=== PATIENT | male | born 1970 | race Caucasian/White ===

== ENCOUNTER 2020-08-10 05:22 | Inpatient (IN) | payer BC, OTHER ==
[2020-08-06 10:53] LABS: BASOPHILS % 0.5 % (0.0-1.0); EOSINOPHILS # (AUTO) 0.1 (0.0-0.4); EOSINOPHILS % 1.5 % (0.0-6.0); HEMATOCRIT 45.4 % (38.2-49.6); HEMOGLOBIN 14.9 g/dL (14.0-18.0); LYMPHOCYTES # (AUTO) 2.2 (1.0-3.2); LYMPHOCYTES % 24.7 % (18.0-39.1); MEAN CORPUSCULAR HGB CONC 32.8 g/dL (31-35); MEAN CORPUSCULAR VOLUME 91.3 fL (81-99); MONOCYTES # (AUTO) 0.8 (0.2-0.8); MONOCYTES % 8.8 % (4.4-11.3); NEUTROPHILS # (AUTO) 5.7 (2.1-6.9); NEUTROPHILS % 64.2 % (38.7-80.0); PLATELET COUNT 221 x10e3/uL (140-360); RED BLOOD COUNT 4.97 x10e6/uL (4.3-5.7); RED CELL DISTRIBUTION WIDTH 13.2 % (11.7-14.4)
[2020-08-06 11:10] LABS: BLOOD UREA NITROGEN 16 mg/dL (7-26); BUN/CREATININE RATIO 13 (6-25); CALCIUM 9.2 mg/dL (8.4-10.2); CARBON DIOXIDE 27 mmol/L (22-29); CHLORIDE 106 mmol/L (98-107); CREATININE, SERUM 1.22 mg/dL (0.72-1.25); EST GLOMERULAR FILTRATION RATE > 60 ML/MIN (60-); GLUCOSE 99 mg/dL (74-118); SODIUM 141 mmol/L (136-145)
[2020-08-10] VITALS (8 sets, daily range): BP systolic 132–154; BP diastolic 72–96
[~2020-08-10] VITALS: Ht 172.7 cm; Wt 131.5 kg
[~2020-08-10 05:22] MED LIST: DICLOFENAC POTA50 MG PO; HYDRALAZINE HCL10 MG PO; HYDROCHLOROTHIA25 MG PO; LOSARTAN POTAS100 MG PO; VERAPAMIL ER120 MG PO; WELLBUTRIN SR150 MG PO
[2020-08-10] MEDS ORDERED: CEFAZOLIN SOD 1 GM/NS 50ML 100 ML IV ONE (06:16)
[2020-08-10] MEDS ORDERED: BUPIVACAINE 0.25% 30ML SDV INJ ONE (07:01)
[2020-08-10] MEDS ORDERED: LIDOCAINE HCL (LTA) 4 ML SOLN ONE (07:11)
[2020-08-10] MEDS ORDERED: SCOPOLAMINE 1.5 MG PATCH ONE (07:11)
[2020-08-10] MEDS ORDERED: ACETAMINOPHEN 1000 MG/100 ML 100 ML IV ONE (07:12)
[2020-08-10] MEDS ORDERED: SUGAMMADEX SODIUM 200 MG/2 ML VIAL IV ONE (08:24)
[2020-08-10] MEDS ORDERED: METOCLOPRAMIDE HCL 10 MG/2ML VIAL ONE (09:06)
[2020-08-10] MEDS ORDERED: FENTANYL CITRATE/PF 100MCG/2 ML INJ ONE ×2 (09:17→13:13)
--- NOTE | 2020-08-10 09:18 | Operative Report ---
DATE OF PROCEDURE: 08/10/2020 SURGEON: Emanuel Herrera MD PREOPERATIVE DIAGNOSES: 1. Morbid obesity, BMI 45. 2. Hypertension. 3. Obstructive sleep apnea. POSTOPERATIVE DIAGNOSES: 1. Morbid obesity, BMI 45. 2. Hypertension. 3. Obstructive sleep apnea. PREOPERATIVE INDICATION: Treat disease, prevent complications related to comorbid conditions of obesity. PROCEDURE: Laparoscopic vertical sleeve gastrectomy. ANESTHESIA: General. PRODUCTION QUALITY MANAGER: Samy Novoa, visual merchandising assistant (needed due to complexity of case). FLUIDS: 1 L crystalloid. ESTIMATED BLOOD LOSS: 10 mL. DRAINS: None. COMPLICATIONS: None. SPECIMENS: Partial stomach. GRAFTS: None. FINDINGS: 1. Normal upper GI anatomy. 2. 3 cm cystic mass of the left lobe of the liver. 3. Negative intraoperative leak test. PROCEDURE IN DETAIL: The patient was brought to the operating room, was intubated under general endotracheal anesthesia. He was positioned supine with both arms abducted and all pressure points appropriately padded. He was sterilely prepped and draped in the usual fashion. A preprocedure pause was performed identifying the patient, use of perioperative antibiotics, intended procedure, and staff surgeon. Access was gained via a 5 mm left subcostal incision using a Veress needle. The abdomen is insufflated, four additional trocars were placed in the standard position. Liver retractor was used to expose the stomach. We noted a multi-cystic mass in the left lobe of the liver, which appeared to be hemangioma. However, no biopsy was obtained. Pictures were obtained and the findings were discussed with the family members. Next, I mobilized the greater curvature of stomach from about 4 cm proximal to the pyloric valve to the left jonn of the diaphragm using the [place] LigaSure device. I then had anesthesia inserted a 32-Turkmen sizing bougie along the lesser curvature of the stomach. The greater curvature of stomach was resected with multiple firings of a 60 mm purple load Atmospheirtronic stapling device, which was reinforced with TRS. Once the specimen was resected, it was removed through the right periumbilical port site. The port site was closed with 0 Vicryl suture using a Dave Faby technique. We then did a leak test, no leaks were identified. Hemostasis was verified. The liver retractor was removed. The trocars were removed. The abdomen is desufflated. Incision sites were closed with 4-0 Monocryl suture in a subcuticular fashion. Dermabond dressings were applied, 0.25% bupivacaine was used both at the preperitoneal incision site. The patient tolerated the procedure well. Type of wound was type 2, clean, contaminated. All surgical sponge and instrument counts were correct. Emanuel Herrera MD Bibi/MANE /[id number]
--- OUTSIDE RECORDS SUMMARY | 2020-08-10 09:19 | XMS REPORT | Continuity of Care Document ---
Author Author [facility] Organization [facility] Address [address] [place] [address] Phone Unavailable Care Team Providers Care Public Relations Supervisor Name Role Phone MEGHANA MILLAN PCP Unavailable ANEESH BHATIA M.D., Dior MELENDREZ Attphys Unavailable ANEESH BHATIA M.D., Dior MELENDREZ Admphys Unavailable Problems This patient has no known problems. Allergies, Adverse Reactions, Alerts This patient has no known allergies or adverse reactions. Medications This patient has no known medications. Procedures This patient has no known procedures. Encounters Start Date/Time End Date/Time [facility]counter Type [facility] ID Source 2017-03-06 04:47:00 2017-03-06 04:47:00 Outpatient C MCSET X MED [id number] [facility] Results Test Description Test Time Test Comments Results Result Comments Source XR SHOULDER 2+V, COMPLETE-RIGHT 2017-03-06 10:55:43 Information: Status post right rotator cuff repairRight shoulder 2 viewsPostoperative changes of the soft tissues is noted. There is minimalosteophytic spurring and sclerosis of the articulating surfaces. Thereis anatomic alignment and position.IMPRESSION:1. Postoperative changes2. Mild degenerative changes. 30121& LAT 2017-02-28 10:40:00 XR CHEST 2V, PA & LATHISTORY: Preop respiratory assessment regarding rotator cuff repairCOMPARISON: None availableTECHNIQUE: PA and lateral views providedFINDINGS: Heart size and pulmonary vasculature within normal limits. Nofocal opacity or acute pleural abnormality. Mild scoliotic curvature ofthe spine noted.IMPRESSION: No active cardiopulmonary process. CT ABDOMEN/PELVIS WITH 2017-02-22 14:14:00 [id number] [place], [place] [address]SEDVKMKUMY IMAGING REPORTPatient Name: FANTA MONTESIGDate of Service: [id number]: 46 Sex: M Order #: [id number] [facility] 1970 [facility] Number: [id number] Record Number: [id number] Hospital Number: [id number] Physician: Vinay BLANKing Physician: MÓNICA MORALES ABDOMEN AND PELVIS WITH CONTRAST:CLINICAL HISTORY: Abdominal pain with nausea vomiting for 2 days; no priorstudies hereTECHNIQUE: Examination is performed following intravenous administration of100 mL of Isovue-300. 4 mm axial sections were obtained with coronal andsagittal reconstructions. The GFR is [address] exam was performed using one or more of the following dosereduction techniques: Automated exposure control, adjustment of the MA andor KV according to patient size or use of iterative reconstructiontechnique.FINDINGS: Images to the lung bases demonstrate a spiculated mass measuring1.9 x 1.5 cm at the base of the left lung. There is a smaller smoothlymarginated subcentimeter nodule demonstrated just anterior to the mass.Further evaluation with a CT scan the chest would be advisable to evaluatefor additional abnormalities in the chest.The enhanced liver, spleen, pancreas, adrenals, kidneys ureters and bladderoral normal.The appendix is normal containing air.The unopacified bowel loops are unremarkable.There is no evidence of ascites or masses.The aorta and its branches as well as the bony lumbar spine are normal forage.Impression:1. Spiculated mass seen in the left lower lung as described above. Advisefurther evaluation with a CT scan the chest to evaluate for additionalabnormalities.2. The CT scan of the abdomen and pelvis is unremarkableElectronically Signed By: Bin Lopez M.D., 02/22/2017 2:12 PMLegally authenticated by NETTIE Cox 2017-02-22 14:12:01
--- NOTE | 2020-08-10 10:00 | NUR ---
Received patient from PACU patient is awake alert and oriented X3 has 5 trochar sites to abdomen with Dermabond. IV access to right wrist. c/o nausea patient has scopolamine patch behind right ear. Oriented to room and use of call light. Belongings and call light within reach. Verbalized understanding to call when needing assistance.
[2020-08-10 10:36] LABS: BASOPHILS % 0.2 % (0.0-1.0); EOSINOPHILS % 0.2 % (0.0-6.0); HEMATOCRIT 44.4 % (38.2-49.6); HEMOGLOBIN 15.2 g/dL (14.0-18.0); LYMPHOCYTES # (AUTO) 1.3 (1.0-3.2); LYMPHOCYTES % 6.6 % (18.0-39.1); MEAN CORPUSCULAR HEMOGLOBIN 31.1 pg (28-32); MEAN CORPUSCULAR HGB CONC 34.2 g/dL (31-35); MEAN CORPUSCULAR VOLUME 90.8 fL (81-99); MONOCYTES # (AUTO) 0.2 (0.2-0.8); MONOCYTES % 1.3 % (4.4-11.3); NEUTROPHILS # (AUTO) 17.4 (2.1-6.9); NEUTROPHILS % 91.3 % (38.7-80.0); PLATELET COUNT 214 x10e3/uL (140-360); RED BLOOD COUNT 4.89 x10e6/uL (4.3-5.7)
[2020-08-10] MEDS: ONDANSETRON HCL INJ 2MG/ML 2ML 2 MG/ML VIAL IV PRN ×2 (10:57→20:57)
[2020-08-10] MEDS: SODIUM CHLORIDE 0.9% 1000ML 1,000 ML IV SCH ×2 (11:25→20:58)
[2020-08-10] MEDS: SCOPOLAMINE 1.5 MG PATCH TOP SCH (11:30)
--- NOTE | 2020-08-10 11:51 | History and Physical ---
CHIEF COMPLAINT: "I'd weight loss surgery." HISTORY OF PRESENT ILLNESS: This is a 50-year-old white man, who was admitted to [facility] with diagnosis of extreme obesity, BMI 45 that was complicating his underlying hypertension and sleep apnea. Today, the patient underwent successful laparoscopic vertical sleeve gastrectomy that was performed by Dr. Emanuel Herrera. The patient tolerated the surgery quite well. During the surgery, the patient was found to have a negative intraoperative leak test. The patient states he is belching, but denies any flatus. The patient states he is quite nauseous, but denies any vomiting. Today's white blood cell count after surgery was 19,000 with 91% segmenters, hemoglobin 15.2 g/dL. The patient's BUN and creatinine on August 06, 2020, was 16 and 1.22, respectively. REVIEW OF SYSTEMS: GENERAL: Weight has been stable. No fever or chills. No malaise. HEENT: No headaches. No visual changes. CARDIOVASCULAR/RESPIRATORY: No chest pain. No shortness of breath or cough. He has sleep apnea, but he uses CPAP machine every night. GI: Complains of nausea, no vomiting. He does have some abdominal discomfort. Denies any flatus. : No Pisano catheter in place. NEUROMUSCULAR: Denies any limb weakness or numbness. PAST MEDICAL HISTORY: 1. Extreme obesity, BMI 44. 2. Hypertensive heart disease. 3. Obstructive sleep apnea. 4. Stage 2 chronic kidney disease. 5. Depression. ALLERGIES: NO KNOWN DRUG ALLERGIES. HOME MEDICATIONS: 1. Bupropion extended release 150 mg once daily. 2. Hydralazine 10 mg b.i.d. p.r.n. elevated blood pressure. 3. Hydrochlorothiazide 25 mg daily. 4. Losartan 100 mg daily. 5. Verapamil 240 mg daily. 6. Diclofenac 50 mg b.i.d. FAMILY HISTORY: Multiple members have hypertension and type 2 diabetes mellitus. SURGICAL HISTORY: 1. Laparoscopic vertical sleeve gastrectomy. 2. Left knee reconstructive surgery. 3. Right shoulder surgery. SOCIAL HISTORY: He is , lives with his . He is employed as a ticket worker. He denies any tobacco use. The patient states he drinks alcohol socially. PHYSICAL EXAMINATION: GENERAL: He is awake, alert. He has a flat affect. He is very pleasant and cooperative. He does not appear to be any obvious distress. VITAL SIGNS: Height 5 feet 8 inches, weight 290 pounds, BMI 44. Blood pressure 142/96, pulse 66, respiratory rate is 16, temperature 97.5, and oxygen 97% on room air. INTEGUMENT: Skin is warm and dry. No pallor, jaundice, or diaphoresis. HEENT: Anicteric sclerae. Moist mucous membranes. NECK: Supple. CARDIOVASCULAR: Distant heart sounds. Regular rate and rhythm. LUNGS: No rales, no rhonchi, no wheezing. ABDOMEN: Obese. No bowel sounds are auscultated. The patient's laparoscopic incisions are clean, dry, intact, currently dressed. EXTREMITIES: No edema or deformity. He is currently wearing sequential compression devices in the lower legs. NEUROLOGIC: Intact. No gross deficits appreciated. DIAGNOSES: 1. Extreme obesity, BMI 44, complicating underlying hypertension and sleep apnea. 2. Status post laparoscopic vertical sleeve gastrectomy today. 3. Hypertensive heart disease. 4. Obstructive sleep apnea. 5. Stage 2 chronic kidney. PLAN: 1. We will renew home meds, but we will hold hydrochlorothiazide and losartan today until he is slightly more hydrated since he has stage 2 chronic kidney disease. 2. Follow renal function and electrolytes. 3. Monitor blood pressure. 4. Pain control. 5. Antiemetics. 6. Encourage incentive spirometer usage to prevent atelectasis. 7. We will start enoxaparin subcutaneous twice a day to prevent deep venous thrombosis. 8. Mobilize patient. 9. Restart bupropion. I would like to thank, Dr. Herrera for involving me in the care of this patient. I spent 45 minutes in the care of the patient. MD MATILDA White/MANE /[id number] FRANCOISE
[2020-08-10] MEDS ORDERED: LIDOCAINE HCL 2% JELLY 5 ML TUBE ONE (12:48)
[2020-08-10] MEDS ORDERED: PROPOFOL IV EMULSION 10 MG/ML 20 ML VIAL ONE (12:48)
[2020-08-10] MEDS ORDERED: LIDOCAINE HCL 2% LOCAL INJ 5 ML SDV VIAL INJ ONE (12:48)
[2020-08-10] MEDS ORDERED: EPHEDRINE SULFATE INJ 50 MG/ML VIAL ONE (12:48)
[2020-08-10] MEDS ORDERED: ROCURONIUM BROMIDE 10 MG/ML 5ML VIAL IV ONE (12:48)
[2020-08-10] MEDS ORDERED: DEXAMETHASONE SOD PHOS INJ 4 MG/ML VIAL ONE (12:48)
[2020-08-10] MEDS ORDERED: ONDANSETRON HCL INJ 2MG/ML 2ML 2 MG/ML VIAL ONE (12:48)
[2020-08-10] MEDS ORDERED: SEVOFLURANE INHAL SOLN 250 ML PEN BTL ONE (12:48)
[2020-08-10] MEDS ORDERED: MIDAZOLAM HCL 2 MG/2 ML VIAL ONE (13:13)
--- NOTE | 2020-08-10 19:05 | NUR ---
WALKING ROUNDS PERFORMED, RECEIVED PT LAYING SEMI FOWLERS IN BED, AAOX3, RR EVEN AND NON-LABORED, ON ROOM AIR. NO S/SX OF DISTRESS NOTED. X5 TROCAR SITES TO ANTERIOR ABD TO BE CDI, OPEN TO AIR. LEFT PT LAYING SEMI FOWLERS IN BED, BED IN LOW LOCKED POSITION, SIDE RAILS UPX2, CALL LIGHT AND PHONE WITHIN REACH.
[2020-08-10] MEDS: ENOXAPARIN SOD INJ 40 MG/0.4 ML SYR SC SCH (20:50)
[2020-08-10] MEDS: MORPHINE SULFATE 2 MG/ML SYR 1ML IV PRN (20:57)
[2020-08-11] VITALS (8 sets, daily range): BP systolic 77–150; BP diastolic 51–69
[2020-08-11] MEDS ORDERED: FAMOTIDINE 20 MG TAB PO ONE (01:00)
[2020-08-11] MEDS: ONDANSETRON HCL INJ 2MG/ML 2ML 2 MG/ML VIAL IV PRN ×3 (01:00→20:30)
[2020-08-11] MEDS ORDERED: PROMETHAZINE 12.5MG/ NACL 0.9% 12.5 MG/50 ML BAG IV PRN (01:00)
[2020-08-11] MEDS: MORPHINE SULFATE 2 MG/ML SYR 1ML IV PRN ×2 (04:46→07:48)
[2020-08-11] MEDS: SODIUM CHLORIDE 0.9% 1000ML 1,000 ML IV SCH ×4 (05:10→22:00)
[2020-08-11 06:12] LABS: BASOPHILS % 0.1 % (0.0-1.0); HEMATOCRIT 41.1 % (38.2-49.6); LYMPHOCYTES # (AUTO) 1.6 (1.0-3.2); LYMPHOCYTES % 8.2 % (18.0-39.1); MEAN CORPUSCULAR HEMOGLOBIN 31.5 pg (28-32); MEAN CORPUSCULAR HGB CONC 34.1 g/dL (31-35); MEAN CORPUSCULAR VOLUME 92.4 fL (81-99); MONOCYTES # (AUTO) 1.3 (0.2-0.8); MONOCYTES % 6.6 % (4.4-11.3); NEUTROPHILS # (AUTO) 16.8 (2.1-6.9); NEUTROPHILS % 84.6 % (38.7-80.0); PLATELET COUNT 256 x10e3/uL (140-360); RED BLOOD COUNT 4.45 x10e6/uL (4.3-5.7)
[2020-08-11 06:39] LABS: ALANINE AMINOTRANSFERASE 24 IU/L (0-55); ALBUMIN 3.6 g/dL (3.5-5.0); ALBUMIN/GLOBULIN RATIO 1.2 (0.8-2.0); ALKALINE PHOSPHATASE 58 IU/L (40-150); ANION GAP 16.9 mmol/L (8-16); BLOOD UREA NITROGEN 13 mg/dL (7-26); BUN/CREATININE RATIO 13 (6-25); CALCIUM 8.3 mg/dL (8.4-10.2); CARBON DIOXIDE 19 mmol/L (22-29); CHLORIDE 105 mmol/L (98-107); CREATININE, SERUM 1.02 mg/dL (0.72-1.25); EST GLOMERULAR FILTRATION RATE > 60 ML/MIN (60-); GLUCOSE 122 mg/dL (74-118); MAGNESIUM 2.1 MG/DL (1.3-2.1); PHOSPHORUS 2.9 MG/DL (2.3-4.7); POTASSIUM 3.9 mmol/L (3.5-5.1); SODIUM 137 mmol/L (136-145)
[2020-08-11] MEDS ORDERED: HYDROCODONE/APAP 7.5MG-325MG 1 EA TAB PO PRN ×2 (07:30→08:15)
[2020-08-11] MEDS: FAMOTIDINE 20 MG TAB PO SCH ×2 (07:48→15:52)
--- NOTE | 2020-08-11 08:21 | NUR ---
Progress Note S: No major complaints, nausea O: AF, VSS General- no acute distress Abdomen- soft, incisions c/d/i A/P: POD 1, s/p Lap sleeve gastrectomy (BMI 45, DM, HTN) -Clears, ambulate, IS, OOB to chair -WBC elevated- Dr. Whitfield working up from septic standpoint and obtaining EKG as well -Ok to discharge home per Dr. Whitfield recommendations- patient will say another night until his WBC trends down and infectious problems ruled out
--- NOTE | 2020-08-11 08:45 | Progress Note ---
DATE: 08/11/2020 CHIEF COMPLAINT/HISTORY OF PRESENT ILLNESS: This is a 50-year-old white man, who was initially admitted to [facility] with diagnosis of extreme obesity, BMI 44, that was complicating his underlying hypertension and sleep apnea. The patient underwent laparoscopic vertical sleeve gastrectomy yesterday, Monday, August 10, 2020. The patient complains of slight cough as well as pain in his periumbilical area. The patient does note belching, but denies any flatus. He also denies any bowel movements. The patient also complains of intense nausea. Yesterday, the patient vomited twice. The nurses state that the patient did not use a CPAP machine last night. The patient was started on famotidine 20 mg by mouth twice a day early this morning. White blood cell count today is 19,900, with 84% segmented neutrophils. Hemoglobin is 14 g/dL. The patient's BUN and creatinine today are 13 and 1.02 respectively. The patient's serum bicarbonate is 19. REVIEW OF SYSTEMS: As per HPI. PHYSICAL EXAMINATION: GENERAL: He is awake. He is alert. He is fully oriented. The patient does have a flat affect. VITAL SIGNS: Height 5 feet and 8 inches, weight 280 pounds. BMI is 44. Blood pressure is 148/64, pulse 64, respiratory rate 18, oxygen 98% on room air, temperature 98.1. INTEGUMENT: Skin is warm and dry. No pallor, jaundice, or diaphoresis. HEENT: Anterior sclerae. Moist mucous membranes. NECK: Supple. CARDIOVASCULAR: Distant heart sounds. Regular rate and rhythm. LUNGS: No rales. No rhonchi. No wheezes. ABDOMEN: Obese. He does have bowel sounds. The laparoscopic incisions are currently dressed. No surrounding erythema. He does have tenderness when palpating the periumbilical area, but no rebound or guarding. Difficult to assess for masses or organomegaly because of the patient's body habitus. EXTREMITIES: No edema or deformity. NEUROLOGIC: Intact. DIAGNOSES: 1. Status post laparoscopic vertical sleeve gastrectomy on August 10, 2020. 2. Extreme obesity, BMI 44, complicated underlying sleep apnea, hypertension. 3. Hypertensive heart disease. 4. Obstructive sleep apnea. 5. Leukocytosis. 6. Anion gap metabolic acidosis. PLAN: 1. Continue intravenous fluids. 2. Intravenous antiemetics as needed. 3. We will start intravenous proton pump inhibitor. 4. We will stop oral famotidine. 5. Encourage mobilization with ambulation. 6. Encourage incentive spirometer usage to prevent atelectasis. 7. We will order a chest x-ray today. 8. Restart losartan for blood pressure control. 9. We will follow renal function and electrolytes. 10. We will hold discharge. 11. Continue enoxaparin subcutaneous twice a day to prevent deep venous thrombosis and pulmonary embolism. I spent 40 minutes in the care of this patient. MD MATILDA White/MANE /[id number] MTDD
--- NOTE | 2020-08-11 08:56 | Diagnostic Imaging Report ---
EXAMINATION: CHEST SINGLE (PORTABLE) INDICATION: Cough, hypotension COMPARISON: None FINDINGS: LINES/TUBES:None LUNGS:The lung volumes are low. Mild left basilar opacities. No pulmonary edema. PLEURA:No pleural effusion or pneumothorax. MEDIASTINUM:The cardiomediastinal silhouette appears normal in size and shape. BONES/SOFT TISSUES:No acute osseous injury. ABDOMEN:No free air under the diaphragm. IMPRESSION: Low lung volumes. Mild left basilar opacities, most likely subsegmental atelectasis. Signed by: Germain See MD on 08/11/2020 8:53 AM
[2020-08-11] MEDS ORDERED: HYDROCHLOROTHIAZIDE 25 MG TAB PO SCH (09:00)
[2020-08-11] MEDS: VERAPAMIL HCL 240 MG TABSR PO SCH (09:00)
[2020-08-11] MEDS ORDERED: LOSARTAN POTASSIUM 100 MG TAB PO SCH (09:00)
[2020-08-11] MEDS ORDERED: VERAPAMIL HCL 120 MG TABSR PO SCH (09:00)
[2020-08-11] MEDS: LOSARTAN POTASSIUM 100 MG TAB PO SCH (09:00)
[2020-08-11] MEDS: PANTOPRAZOLE 40 MG 10ML VIAL IV SCH (09:53)
[2020-08-11] MEDS: ENOXAPARIN SOD INJ 40 MG/0.4 ML SYR SC SCH ×2 (09:53→20:30)
[2020-08-11] MEDS: BUPROPION HCL SR 150 MG TAB PO SCH (09:53)
[2020-08-11] MEDS ORDERED: SODIUM CHLORIDE 0.9% 500ML 500 ML IV ONE (12:15)
[2020-08-11] MEDS ORDERED: VANCOMYCIN 1GM/NS 250 ML 250 ML IV ONE (13:30)
[2020-08-11] MEDS ORDERED: CEFEPIME 1GM/NS 0.9% 50 ML 50 ML IV ONE (13:30)
[2020-08-11] MEDS: HYDROCODONE/APAP 5MG-325MG TAB PO PRN ×2 (15:52→20:30)
--- NOTE | 2020-08-11 16:47 | NUR ---
Nutrition Screen Note RD Recommendation for Physician: - As feasible per MD discretion, advance diet to full liquids Plan of Care: RD following, monitoring for tolerance and adequacy Nutrition reason for involvement: MD Consult- post gastrectomy diet education Primary Diagnose(s): morbid obesity, laparoscopic vertical sleeve gastrectomy PMH: HTN, sleep apnea, CKD stage II, depression Ht: 68 in Wt: 290 lb BMI: 44.1 kg/m2 IBW: [address] Assessment: (08/11) 50 YOM admitted for bariatric surgery, seen today per MD consult for diet education. Pt sleeping at time of visits, awakened at last attempt. Pt receptive to diet education, unable to provide full review of diet education materials as pt kept falling asleep. Pt reports seeing a RD regarding diet [employer] REF[employer] and that he is familiar with the recommendations. Pt provided with diet education materials that included progression of diet, protein supplements, MVI/mineral rec's, and foods/beverages to avoid. Pt with no questions or concerns at time of visit. Chart reviewed. Labs and meds reviewed. Current Diet: bariatric clear liquids Malnutrition Evaluation (08/11/20) The patient does not meet criteria for a specified degree of malnutrition at this time. Will re-evaluate at follow-up as appropriate. Diet Education Needs Assessment: Diet education indicated, pt receptive- diet education provided 08/11. Learner(s): pt Barriers: pt very sleepy at time of visit, unable to provide complete education Cultural/Language Modifications: none Readiness: somewhat ready Method: handouts, discussion Topics: post gastrectomy diet progression Understanding/Compliance: fair due to current status, pt reports prior education with RD Diet tolerance: tolerating CLD Nutrition Care Level: low Signed: Sandrita Alberts RD, LD, [facility]
[2020-08-11] MEDS ORDERED: SODIUM CHLORIDE 0.9% 1000ML 2,000 ML IV ONE (19:45)
[2020-08-12] VITALS (8 sets, daily range): BP systolic 128–146; BP diastolic 69–85
[2020-08-12] MEDS ORDERED: CEFEPIME HCL 1 GM VIAL IV SCH (01:30)
[2020-08-12] MEDS: HYDROCODONE/APAP 5MG-325MG TAB PO PRN ×3 (01:43→20:20)
[2020-08-12] MEDS: ONDANSETRON HCL INJ 2MG/ML 2ML 2 MG/ML VIAL IV PRN ×2 (01:57→08:00)
[2020-08-12] MEDS: CEFEPIME 1GM/NS 0.9% 50 ML 50 ML IV SCH ×3 (02:17→14:17)
[2020-08-12 05:14] LABS: BASOPHILS % 0.1 % (0.0-1.0); HEMOGLOBIN 10.2 g/dL (14.0-18.0); LYMPHOCYTES # (AUTO) 3.1 (1.0-3.2); LYMPHOCYTES % 14.5 % (18.0-39.1); MEAN CORPUSCULAR HGB CONC 35.2 g/dL (31-35); MEAN CORPUSCULAR VOLUME 93.9 fL (81-99); MONOCYTES # (AUTO) 1.8 (0.2-0.8); MONOCYTES % 8.3 % (4.4-11.3); NEUTROPHILS # (AUTO) 16.2 (2.1-6.9); NEUTROPHILS % 76.5 % (38.7-80.0); PLATELET COUNT 190 x10e3/uL (140-360); RED BLOOD COUNT 3.09 x10e6/uL (4.3-5.7); RED CELL DISTRIBUTION WIDTH 13.9 % (11.7-14.4)
[2020-08-12 05:38] LABS: ALBUMIN 3.3 g/dL (3.5-5.0); ALBUMIN/GLOBULIN RATIO 1.2 (0.8-2.0); ANION GAP 14.9 mmol/L (8-16); CALCIUM 7.9 mg/dL (8.4-10.2); CREATININE, SERUM 1.63 mg/dL (0.72-1.25); POTASSIUM 3.9 mmol/L (3.5-5.1)
[2020-08-12] MEDS ORDERED: DIATRIZOATE MEGL/DIATRIZOA SOD 30 ML BTL PO ONE (07:51)
[2020-08-12] MEDS: PANTOPRAZOLE 40 MG 10ML VIAL IV SCH (08:07)
[2020-08-12] MEDS: BUPROPION HCL SR 150 MG TAB PO SCH (08:10)
[2020-08-12] MEDS: FAMOTIDINE 20 MG TAB PO SCH ×2 (08:10→16:20)
[2020-08-12] MEDS: ENOXAPARIN SOD INJ 40 MG/0.4 ML SYR SC SCH ×2 (08:11→20:20)
[2020-08-12] MEDS: VERAPAMIL HCL 240 MG TABSR PO SCH (08:14)
[2020-08-12] MEDS: LOSARTAN POTASSIUM 100 MG TAB PO SCH (08:16)
[2020-08-12] MEDS ORDERED: IOPAMIDOL 370 MG/ML 200 ML INFUS..BTL INJ ONE (08:27)
[2020-08-12] MEDS ORDERED: SODIUM CHLORIDE 0.9% 50ML 50 ML ONE (08:27)
--- NOTE | 2020-08-12 08:27 | Progress Note ---
DATE: 08/12/2020 CHIEF COMPLAINT/HISTORY OF PRESENT ILLNESS: This is a 50-year-old white man, who was initially admitted to [facility] with diagnosis of extreme obesity, BMI 44 that was complicating his underlying hypertension and sleep apnea. During this hospitalization, the patient underwent successful laparoscopic vertical sleeve gastrectomy. Yesterday his discharge was held because the patient was hypotensive and he had abnormal labs, specifically elevated white blood cell count. The patient's white blood cell count today is 21,100 with 76% segmenters. The patient's hemoglobin today is 10 g/dL. The patient's BUN and creatinine are 28 and 1.63 respectively. The patient's potassium is 3.8. Serum bicarbonate is 18. The patient's BUN and creatinine 28 and 1.63 respectively. The patient's anion gap is 14.9. The last lactic acid level checked yesterday was 1.8. The patient had a troponin I checked twice yesterday. The first one was 0.047, and the second one was 0.164. Chest film performed yesterday revealed mild left basilar opacity. The patient states that he does have a slight productive cough. Denies any fever or chills. The patient states today he has less nausea. He also denies any vomiting. The patient states he has belching and flatus, but no bowel movement. REVIEW OF SYSTEMS: As per HPI. PHYSICAL EXAMINATION: GENERAL: He is awake, alert. He is fully oriented. He has no distress. He appears more comfortable today than compared to yesterday. VITAL SIGNS: Blood pressure 136/72, pulse 106, respiratory rate 22, temp 98.2, oxygen 98% on room air. Height 5 feet 8 inches, weight is 290 pounds, BMI 44. INTEGUMENT: Skin is warm and dry. No pallor, jaundice, or diaphoresis. HEENT: Clear, moist mucous membranes. NECK: Supple. CARDIOVASCULAR: Distant heart sounds. Tachycardic. Regular rate and rhythm. LUNGS: No rales. No rhonchi. No wheezes. ABDOMEN: Soft. No bowel sounds auscultated. The trocar incisional sites are clean, dry, intact with no drainage. The patient has slight tenderness right inferior to the right upper quadrant area. EXTREMITIES: No edema in the legs. NEUROLOGIC: Intact. DIAGNOSES: 1. Status post laparoscopic vertical sleeve gastrectomy. 2. Extreme obesity, BMI 44, complicated underlying hypertension and sleep apnea. 3. Acute renal insufficiency, likely secondary to acute tubular necrosis. 4. Anion gap metabolic acidosis. 5. Left lower lobe pneumonia, likely. PLAN: 1. Continue intravenous fluids. 2. Order a CT of the abdomen and pelvis with oral contrast. 3. Order CT angiogram of the chest to assess for pulmonary thromboembolism. 4. Monitor renal function. 5. Monitor hemoglobin and hematocrit. 6. I spoke with the patient's bariatric surgeon concerning the patient's abnormal labs. 7. Continue intravenous antibiotics for possible left lower lobe pneumonia. I spent 45 minutes in the care of this patient. MD MATILDA White/MANE /[id number] MTDD
[2020-08-12] MEDS: SODIUM CHLORIDE 0.9% 1000ML 1,000 ML IV SCH ×4 (09:31→16:53)
--- NOTE | 2020-08-12 11:23 | Diagnostic Imaging Report ---
EXAM: CT Chest WITH contrast- Pulmonary Embolism Protocol INDICATION: ^assess for pulmonary embolism ^[id number] ^1020 ^Y COMPARISON: None TECHNIQUE: Chest was scanned utilizing a multidetector helical scanner from the lung apex through the level of the diaphragm after administration of IV contrast. Thin section reconstructions were obtained with special concentration on the pulmonary arteries. Coronal and sagittal reformations were obtained. Pulmonary embolism protocol was performed. IV CONTRAST: 100 cc of Isovue 370 RADIATION DOSE: Total DLP: 1410 mGy*cm Dose modulation, iterative reconstruction, and/or weight based adjustment of the mA/kV was utilized to reduce the radiation dose to as low as reasonably achievable. COMPLICATIONS: None FINDINGS: LINES/ TUBES: None. PULMONARY ARTERIES: Severely limited evaluation. The main pulmonary artery measures Hounsfield units of 188. Normally for diagnostic evaluation Hounsfield units should be above 300. Negative for large central pulmonary embolism. Evaluation of the segmental ranches and beyond is limited due to poor contrast opacification and respiratory motion artifact. Main pulmonary artery is of normal caliber. LUNGS AND AIRWAYS: Basilar atelectasis is noted. Probable nodular atelectasis is noted at the left lung base measuring up to 1.4 cm. PLEURA: The pleural spaces are clear. HEART AND MEDIASTINUM: The thyroid gland is normal. No mediastinal, hilar or axillary lymphadenopathy. The heart is normal in size. Negative for right ventricular enlargement or bowing of the interventricular septum.. There is no pericardial effusion. UPPER ABDOMEN: Better evaluated on separately reported CT of the abdomen and pelvis. BONES: Negative for acute osseous abnormality. Mild to moderate multilevel degenerative changes of the thoracic spine are noted. SOFT TISSUES: Unremarkable. IMPRESSION: 1. Limited evaluation for pulmonary embolus amount described above. Negative for large central or saddle embolus or secondary signs of right heart strain. 2. Linear atelectasis at the right lung base and probable nodular atelectasis versus pulmonary hamartoma/granuloma at the left lung base. Consider follow-up noncontrast CT chest in 6 months to assess for resolution and assess for possible calcium/fat within the left basilar nodular opacity. Signed by: Denzel Ye MD on 08/12/2020 11:20 AM
--- NOTE | 2020-08-12 11:36 | Diagnostic Imaging Report ---
ADDENDUM #1 ADDENDUM: At approximately 1150 colon hours on 08/12/2020 the imaging was reviewed with the performing surgeon, Dr. Martinez, in person. Given that the hyperdense fluid appears to originate from the inferior/anterior aspect of the staple line and there is no pneumoperitoneum findings are more suggestive of staple line bleed as opposed to surgical leak. In addition the exophytic hypodense lesion is noted intraoperatively to be arising from the liver, likely a hemangioma as it becomes isodense to the liver on delayed phase imaging. Signed by: Denzel Ye MD on 08/12/2020 1:[address] of the abdomen and pelvis with contrast TECHNIQUE: CT of the abdomen and pelvis WITH intravenous contrast and WITH oral contrast. Dose modulation, iterative reconstruction, and/or weight-based adjustment of the mA/kV was utilized to reduce the radiation dose to as low as reasonably achievable. IV CONTRAST: 100 mL of Isovue-370 ORAL CONTRAST: Gastrografin RADIATION DOSE: Total DLP: 910 mGy*cm COMPLICATIONS: None INDICATION: ^recent lap sleeve gastrectomy with high WBC. oral contrast ^[id number] ^1040 ^Y. COMPARISON: None. FINDINGS: LOWER THORAX: See separately reported CT of the chest. HEPATOBILIARY: No focal hepatic lesions. Gallbladder is unremarkable. No biliary ductal dilatation. SPLEEN: No splenomegaly. Wedged shaped superior hypodensity probably relates to a small infarct. PANCREAS: No focal masses or ductal dilatation. ADRENALS: No adrenal nodules. KIDNEYS/URETERS: No hydronephrosis, stones, or masses. Delayed imaging damages symmetric excretion of contrast into nondilated ureters. PELVIC ORGANS/BLADDER: Unremarkable. PERITONEUM/RETROPERITONEUM: Heterogeneous free fluid is noted throughout the abdomen and pelvis, extending from the upper abdomen including the perihepatic space into the right paracolic gutter and pelvis. Dependently within the pelvis there appears to be contrast within the fluid (image 87). Fluid does not measure simple and measures Alberto images ranging from 30-50 throughout. LYMPH NODES: No lymphadenopathy. VESSELS: Unremarkable. GI TRACT: Postsurgical changes from sleeve gastrectomy are noted. There is a hypodense exophytic lesion arising from the gastric fundus (image 17) measuring up to 3.6 x 3.0 cm. Of uncertain etiology, possibly postsurgical in nature. Oral contrast is identified throughout the proximal colon and distal small bowel loops. Negative for bowel obstruction.. BONES AND SOFT TISSUES: No acute osseous abnormality. Mild to moderate multilevel degenerative changes of the spine are noted. No suspicious lytic or blastic lesion. Soft tissues are unremarkable.. IMPRESSION: 1. Hyperdense free fluid throughout the abdomen and pelvis extending from the upper midline abdomen into the perihepatic space to the right pericolic gutter and dependent portions of the pelvis. No surrounding contrast enhancement to suggest abscess formation. There is probable contrast poorly dependently at the base of the pelvis suggesting leak from recent sleeve gastrectomy. Hyperdense appearance is also concerning for a component of hemoperitoneum. 2. Post surgical changes from laparoscopic sleeve gastrectomy. Hypodense exophytic lesion arising from the gastric fundus and superior portion of the suture line is of uncertain etiology and could relate to postoperative change versus incisional hernia. The above findings were discussed with Dr. Whitfield on 08/12/2020 11:20 AM, who responded indicating that the communication was understood. The performing surgeon, Dr. Martinez, will be notified. Signed by: Denzel Ye MD on 08/12/2020 11:33 AM
[2020-08-12] MEDS ORDERED: SUGAMMADEX SODIUM 200 MG/2 ML VIAL IV ONE (12:01)
[2020-08-12] MEDS ORDERED: LIDOCAINE HCL (LTA) 4 ML SOLN ONE (12:01)
--- NOTE | 2020-08-12 12:11 | NUR ---
Progress Note S: Patient became progressively septic, hypotensive, WBC up to 21,000; He's been tolerating clears though, and he says he feels better overall. Imaging: CT scan showed a possibility of a leak at the distal end of staple line. O: AF, VSS General- no acute distress Abdomen-soft, tender right upper quadrant; incisions healing well A/P: POD 2, s/p Lap sleeve gastrectomy Will take back to the Operating room for a laparoscopic exploration Discussed this with patient He consents for treatment
[2020-08-12] MEDS ORDERED: INDIGOTINDISULFONATE SODIUM 8 MG/ML AMP IJ ONE (12:24)
[2020-08-12] MEDS ORDERED: BUPIVACAINE 0.25% 30ML SDV INJ ONE (12:25)
[2020-08-12] MEDS ORDERED: SCOPOLAMINE 1.5 MG PATCH ONE (12:34)
[2020-08-12] MEDS ORDERED: SUCCINYLCHOLINE CHLORIDE 20 MG/ML 10ML VIAL ONE (13:10)
[2020-08-12] MEDS ORDERED: ONDANSETRON HCL INJ 2MG/ML 2ML 2 MG/ML VIAL ONE (13:10)
[2020-08-12] MEDS ORDERED: NEOSTIGMINE 1 MG/ML 10ML VIAL ONE (13:10)
[2020-08-12] MEDS ORDERED: PROPOFOL IV EMULSION 10 MG/ML 20 ML VIAL ONE (13:10)
[2020-08-12] MEDS ORDERED: SEVOFLURANE INHAL SOLN 250 ML PEN BTL ONE (13:10)
[2020-08-12] MEDS ORDERED: LIDOCAINE HCL 2% LOCAL INJ 5 ML SDV VIAL INJ ONE (13:10)
[2020-08-12] MEDS ORDERED: ROCURONIUM BROMIDE 10 MG/ML 5ML VIAL IV ONE (13:10)
[2020-08-12] MEDS ORDERED: GLYCOPYRROLATE INJ 0.2 MG/ML VIAL ONE (13:10)
[2020-08-12] MEDS ORDERED: PHENYLEPHRINE HCL 1% 10 MG/ML VIAL ONE (13:10)
[2020-08-12] MEDS ORDERED: FENTANYL CITRATE/PF 100MCG/2 ML INJ ONE (13:21)
[2020-08-12] MEDS ORDERED: MIDAZOLAM HCL 2 MG/2 ML VIAL ONE (13:21)
--- NOTE | 2020-08-12 14:24 | Operative Report ---
DATE OF PROCEDURE: 08/12/2020 SURGEON: Emanuel Herrera MD PREOPERATIVE DIAGNOSES: Sepsis, peritonitis, anemia. POSTOPERATIVE DIAGNOSES: Intraperitoneal hematoma. PREOPERATIVE INDICATION: Treat disease, prevent septic and/or hemorrhage related complications. PROCEDURES: Diagnostic laparoscopy with evacuation of 300 mL of a hematoma. ANESTHESIA: General. SURGICAL CODER: Samy Novoa, surgical product sales consultant (needed due to complexity of case). FLUIDS: 1400 mL of crystalloid. ESTIMATED BLOOD LOSS: 300 mL. DRAINS: A 19-Latvian round CASH. COMPLICATIONS: None. SPECIMENS: None. GRAFTS: None. FINDINGS: 1. Large intraperitoneal hematoma. 2. Negative leak test. PROCEDURE IN DETAIL: The patient was brought to the operating room, and was intubated under general endotracheal anesthesia. He was sterilely prepped and draped in the usual fashion. A preprocedure pause was performed identifying the patient, use of perioperative antibiotics, intended procedure, and staff surgeon. We gained access via the 5 mm subcostal incision, which we had used 2 days prior and placed our trocars in their positions, that we had previously placed on the 10 of August. Once again, access to the peritoneal cavity and immediately noted a large hematoma in the peritoneal cavity, extending from the distal surface of the sleeve staple line to the right pericolic gutter. I spent a great deal of time evacuating the hematoma with this suction coloring machine operator. We found no active source of bleeding. We looked at the splenic hilum, the surfaces of the liver, the right pericolic gutter, and the sleeve staple line. I did place some hemoclips on this staple line on areas where I could tell that there may be some vessels. We then injected indigo blue dye through OG tube, mixed with saline 30 mL worth. However, no leak was identified throughout the staple line. We then placed a 19-Latvian round CASH along the staple line and brought this out through the right flank port site and sutured to the skin with nylon suture. After verifying hemostasis, we then closed the large port site with 0 Vicryl suture using the Dave-Mao technique and then desufflated the abdomen. The trocars were removed. Liver retractor was removed. Incision sites were closed with 4-0 Monocryl suture in a subcuticular fashion. Dermabond dressings were applied. A 0.25% bupivacaine was used both at the preperitoneal incision sites. The patient tolerated the procedure well. Type of wound was type 1, clean. All surgical sponge and instrument counts were correct. MD SWAPNIL Malone/MANE /[id number]
[2020-08-12] MEDS ORDERED: MEPERIDINE HCL INJ 25 MG/ML VIAL ONE (14:28)
--- NOTE | 2020-08-12 20:20 | NUR ---
PATIENT IS RESTING IN BED IN STABLE CONDITION, NO SIGNS OF RESPIRATORY DISTRESS NOTED. IV FLUIDS ARE RUNNING AT ORDERED RATE AND PATIENT VOICES PAIN AT A LEVEL OF 7, WAS MEDICATED ORDERED. CASH DRAIN IS PATENT AND FLOWING SEROSANGUINEOUS FLUID NOTED. BED IS IN LOW POSITION, BOTH SIDE RAILS ARE UP, CALL LIGHT IS WITHIN EASY REACH, WILL CONTINUE TO MONITOR.
[2020-08-12] MEDS ORDERED: ACETAMINOPHEN 325 MG TAB PO PRN (21:00)
[2020-08-13] VITALS (10 sets, daily range): BP systolic 105–147; BP diastolic 63–93
[2020-08-13] MEDS: HYDROCODONE/APAP 5MG-325MG TAB PO PRN ×6 (00:30→21:25)
[2020-08-13] MEDS: SODIUM CHLORIDE 0.9% 1000ML 1,000 ML IV SCH ×6 (01:15→19:00)
[2020-08-13] MEDS: PANTOPRAZOLE 40 MG 10ML VIAL IV SCH ×2 (01:20→06:35)
[2020-08-13] MEDS: CEFEPIME 1GM/NS 0.9% 50 ML 50 ML IV SCH ×2 (01:36→14:14)
[2020-08-13 05:11] LABS: BASOPHILS % 0.3 % (0.0-1.0); EOSINOPHILS % 0.1 % (0.0-6.0); HEMATOCRIT 22.5 % (38.2-49.6); HEMOGLOBIN 7.9 g/dL (14.0-18.0); LYMPHOCYTES # (AUTO) 2.2 (1.0-3.2); LYMPHOCYTES % 19.4 % (18.0-39.1); MEAN CORPUSCULAR HEMOGLOBIN 33.2 pg (28-32); MEAN CORPUSCULAR HGB CONC 35.1 g/dL (31-35); MEAN CORPUSCULAR VOLUME 94.5 fL (81-99); MONOCYTES # (AUTO) 1.1 (0.2-0.8); MONOCYTES % 9.3 % (4.4-11.3); NEUTROPHILS # (AUTO) 7.9 (2.1-6.9); NEUTROPHILS % 70.5 % (38.7-80.0); PLATELET COUNT 164 x10e3/uL (140-360); RED BLOOD COUNT 2.38 x10e6/uL (4.3-5.7); RED CELL DISTRIBUTION WIDTH 13.6 % (11.7-14.4)
[2020-08-13 05:37] LABS: ALANINE AMINOTRANSFERASE 38 IU/L (0-55); ALBUMIN 2.8 g/dL (3.5-5.0); ALBUMIN/GLOBULIN RATIO 1.1 (0.8-2.0); ALKALINE PHOSPHATASE 42 IU/L (40-150); ANION GAP 10.8 mmol/L (8-16); BLOOD UREA NITROGEN 14 mg/dL (7-26); BUN/CREATININE RATIO 15 (6-25); CALCIUM 7.7 mg/dL (8.4-10.2); CARBON DIOXIDE 23 mmol/L (22-29); CHLORIDE 111 mmol/L (98-107); CREATININE, SERUM 0.95 mg/dL (0.72-1.25); EST GLOMERULAR FILTRATION RATE > 60 ML/MIN (60-); GLUCOSE 94 mg/dL (74-118); POTASSIUM 3.8 mmol/L (3.5-5.1); SODIUM 141 mmol/L (136-145)
[2020-08-13] MEDS ORDERED: SODIUM CHLORIDE 0.9% 250ML 250 ML IV SCH (08:00)
[2020-08-13] MEDS: BUPROPION HCL SR 150 MG TAB PO SCH (08:05)
[2020-08-13] MEDS: LOSARTAN POTASSIUM 100 MG TAB PO SCH (08:05)
[2020-08-13] MEDS: VERAPAMIL HCL 240 MG TABSR PO SCH (08:06)
--- NOTE | 2020-08-13 08:09 | NUR ---
PROGRESS NOTE S: No complaints O: AF, VSS; Hgb 7.9 today, WBC 11,000, creatinine 0.9 Gen- no distress Abd- soft, incisions c/d/i A/P: POD 3, s/p Lap sleeve gastrectomy, complicated by acute blood loss anemia (likely secondary to hemorrhage at staple line), s/p diagnostic laparoscopy with evacuation of hematoma (POD 1) -Cont Clears -Transfuse 1 unit PRBC -OK to d/c drain -Possible d/c home tomorrow -Appreciate care provided by Dr. Whitfield
--- NOTE | 2020-08-13 08:40 | Progress Note ---
DATE: 08/13/2020 CHIEF COMPLAINT/HISTORY OF PRESENT ILLNESS: This is a 50-year-old white man, who during this admission underwent laparoscopic sleeve gastrectomy. The patient experienced persistent hypotension as well as acute renal insufficiency as well as signs and symptoms consistent with sepsis, specifically tachycardia, hypotension, elevated lactic acid level and leukocytosis. The patient's hemoglobin yesterday dropped to 10.2 g/dL. The patient underwent a CT of the abdomen and pelvis yesterday on August 12, 2020, with oral contrast, which revealed evidence of hemoperitoneum. The bariatric surgeon, namely Dr. Emanuel Herrera, took the patient to the operating room yesterday and found a large intraperitoneal hematoma. The patient underwent diagnostic laparoscopy with evacuation of 300 mL of the hematoma. The patient tolerated the surgery quite well. During the procedure, he received 1400 mL of crystalloid. Today's hemoglobin 7.9 g/dL, the patient's white blood cell count is 11,200 with 70% segmented neutrophils. The patient's BUN and creatinine today are 14 and 0.95, respectively. Potassium is 3.8. AST and ALT are 31 and 38, respectively. The patient voiced no complaints. The patient denies any nausea or vomiting. The patient denies any abdominal pain. The patient states he has been ambulating up and down the halls with no difficulty this morning. The patient notes belching and flatus, but denies any bowel movement. The patient states his cough has actually improved. REVIEW OF SYSTEMS: As per HPI. PHYSICAL EXAMINATION: GENERAL: He is awake, alert, fully oriented, in no distress, very pleasant and cooperative on exam. VITAL SIGNS: Height is 5 feet 8 inches, weight is 290 pounds. BMI 44. Blood pressure is 134/74, pulse 84, respiratory rate 18, temperature is 98.2, and oxygen 97% on room air. INTEGUMENT: Skin is warm and dry. Slight pallor. No jaundice or diaphoresis. HEENT: Anicteric sclerae with moist mucous membranes. NECK: Supple. CARDIOVASCULAR: Distant heart sounds. Tachycardic rate with regular rhythm. LUNGS: No rales. No rhonchi. No wheezes. ABDOMEN: Soft. Bowel sounds are auscultated. No tenderness. The laparoscopic incision sites are clean, dry, and intact. EXTREMITIES: No edema or deformity. NEUROLOGIC: Intact. DIAGNOSES: 1. Status post laparoscopic vertical sleeve gastrectomy on August 10, 2020. 2. Status post diagnostic laparoscopy with hematoma evacuation (300 mL) on August 12, 2020. 3. Acute renal insufficiency, resolved. 4. Anion gap metabolic acidosis, resolved. 5. Hypertensive heart disease. 6. Extreme obesity, BMI 44. 7. Acute hemorrhagic anemia secondary to hemoperitoneum. PLAN: 1. Transfuse 1 unit of packed red cells. 2. Follow hemoglobin and hematocrit. 3. Follow electrolytes and renal function. 4. We will stop intravenous fluids while the patient is receiving blood transfusion. 5. Continue clear liquid diet. 6. Encourage the patient to ambulate. 7. Continue incentive spirometry to prevent atelectasis. 8. I discussed case today with the bariatric surgeon. 9. Discharge planning tentatively for tomorrow, Monday, August 14, 2020. I spent 35 minutes in the care of the patient. MD MATILDA White/MANE /[id number] MTDD
[2020-08-13] MEDS: SCOPOLAMINE 1.5 MG PATCH TOP SCH (12:47)
--- NOTE | 2020-08-13 15:45 | NUR ---
CASH drain removed as ordered and dry dressing applied. Patient tolerated well. No drainage from the site after 30 minutes. Awaiting blood to be ready for transfusion. Consented, in no apparent distress. Medicated for pain and nausea
--- NOTE | 2020-08-13 17:35 | NUR ---
Blood started with Devorah mercedes bedside. Patient states he thought he was O-. Double checked with the lab before hanging.
--- NOTE | 2020-08-13 19:40 | NUR ---
PATIENT HAS FINISHED A UNIT OF BLOOD, NO SIGNS OF DISTRESS NOTED. VITALS ARE STABLE WILL CONTINUE TO MONITOR.
[2020-08-14] VITALS: BP 115/70
[2020-08-14] MEDS: CEFEPIME 1GM/NS 0.9% 50 ML 50 ML IV SCH (00:30)
[2020-08-14] MEDS: SODIUM CHLORIDE 0.9% 1000ML 1,000 ML IV SCH ×2 (00:30→00:37)
[2020-08-14 04:00] VITALS: BP 137/82
[2020-08-14 05:22] LABS: BASOPHILS % 0.3 % (0.0-1.0); EOSINOPHILS # (AUTO) 0.3 (0.0-0.4); EOSINOPHILS % 2.9 % (0.0-6.0); HEMOGLOBIN 8.6 g/dL (14.0-18.0); LYMPHOCYTES # (AUTO) 2.8 (1.0-3.2); LYMPHOCYTES % 29.1 % (18.0-39.1); MEAN CORPUSCULAR HEMOGLOBIN 31.4 pg (28-32); MEAN CORPUSCULAR HGB CONC 33.1 g/dL (31-35); MEAN CORPUSCULAR VOLUME 94.9 fL (81-99); MONOCYTES # (AUTO) 0.7 (0.2-0.8); MONOCYTES % 7.5 % (4.4-11.3); NEUTROPHILS # (AUTO) 5.7 (2.1-6.9); NEUTROPHILS % 59.8 % (38.7-80.0); PLATELET COUNT 178 x10e3/uL (140-360); RED BLOOD COUNT 2.74 x10e6/uL (4.3-5.7); RED CELL DISTRIBUTION WIDTH 13.6 % (11.7-14.4)
[2020-08-14 05:41] LABS: ALANINE AMINOTRANSFERASE 36 IU/L (0-55); ALBUMIN 2.9 g/dL (3.5-5.0); ALBUMIN/GLOBULIN RATIO 1.1 (0.8-2.0); ALKALINE PHOSPHATASE 46 IU/L (40-150); ANION GAP 12.7 mmol/L (8-16); BLOOD UREA NITROGEN 13 mg/dL (7-26); BUN/CREATININE RATIO 15 (6-25); CALCIUM 7.8 mg/dL (8.4-10.2); CARBON DIOXIDE 23 mmol/L (22-29); CHLORIDE 109 mmol/L (98-107); CREATININE, SERUM 0.89 mg/dL (0.72-1.25); EST GLOMERULAR FILTRATION RATE > 60 ML/MIN (60-); GLUCOSE 82 mg/dL (74-118); POTASSIUM 3.7 mmol/L (3.5-5.1); SODIUM 141 mmol/L (136-145)
[2020-08-14] MEDS: HYDROCODONE/APAP 5MG-325MG TAB PO PRN (05:41)
[2020-08-14] MEDS: PANTOPRAZOLE 40 MG 10ML VIAL IV SCH (06:21)
--- NOTE | 2020-08-14 07:00 | NUR ---
BEDSIDE SHIFT REPORT RECEIVED PT IN STABLE CONDITION, 5 TROCHAR SITES TO ABDOMEN C/D/I, IVF INFUSING TO R AC 20G NO SS OF INFILTRATION NOTED, UPDATED ON POC VOICED UNDERSTANDING, NO OTHER CO VOICED CALL LIGHT IN REACH WILL CONTINUE TO MONITOR
[2020-08-14 07:43] VITALS: BP 127/74
[2020-08-14 07:56] VITALS: BP 127/74
[2020-08-14] MEDS: VERAPAMIL HCL 240 MG TABSR PO SCH (08:20)
[2020-08-14] MEDS: LOSARTAN POTASSIUM 100 MG TAB PO SCH (08:21)
[2020-08-14] MEDS: BUPROPION HCL SR 150 MG TAB PO SCH (08:21)
[2020-08-14] MEDS ORDERED: ONDANSETRON HCL 4 MG ORAL DISINTEGRATING TAB PO PRN (08:45)
--- NOTE | 2020-08-14 09:21 | Discharge Summary ---
ADMIT DIAGNOSES: 1. Extreme obesity, BMI 44, complicating underlying hypertension and sleep apnea. 2. Hypertensive heart disease. 3. Obstructive sleep apnea. DISCHARGE DIAGNOSES: 1. Status post laparoscopic vertical sleeve gastrectomy on August 10, 2020. 2. Status post diagnostic laparoscopy with hematoma evacuation (300 mL) on August 12, 2020. 3. Extreme obesity, BMI 44, complicating underlying hypertension and sleep apnea. 4. Hypertensive heart disease. 5. Obstructive sleep apnea. 6. Acute renal insufficiency, secondary to acute tubular necrosis, resolved. 7. Acute hemorrhagic anemia from staple line bleed, likely; resolved.. 8. Status post packed red cell transfusion (1 unit). 9. Sepsis, secondary to hemoperitoneum, resolved. HOSPITAL COURSE: This is a 50-year-old white man, who was initially admitted to [facility] with diagnosis of extreme obesity, BMI of 44 that was complicating his underlying hypertensive heart disease and sleep apnea. On admission, the patient underwent laparoscopic vertical sleeve gastrectomy that was performed by Dr. Emanuel Herrera. The patient tolerated surgery quite well. Unfortunately, afterwards the patient developed leukocytosis and acute renal insufficiency. Moreover, he was hypotensive and tachycardic. Also, his lactic acid level was elevated and it did get as high as 2.2. The patient underwent a CT of the chest with intravenous contrast, which did not reveal any obvious pulmonary embolism. However, the patient underwent a CT of the abdomen and pelvis with contrast, which revealed an evidence of hemoperitoneum. It was felt that this hemoperitoneum was secondary to staple line bleed as opposed to surgical leak. Of note, the patient did receive enoxaparin postoperatively and twice a day during this hospitalization to prevent deep venous thrombosis. When the patient was admitted, his hemoglobin was 15.2 g/dL. His hemoglobin did get as low as 7.9 g/dL. The patient was transfused 1 unit of packed red blood cells during this hospital stay. The patient's hemoglobin on discharge was 8.6 g/dL. During this hospitalization, the patient's white blood [place] [address] with 76% segmented neutrophils. On discharge, the patient's white blood cell count was 9500 with 59% segmented neutrophils. During this hospital stay, the patient did receive intravenous cefepime for his sepsis as well as multiple normal saline intravenous boluses as well as continuous infusion of normal saline. The patient's vital signs normalized during this hospitalization as well as his renal function as previous stated. On the day of discharge, the patient was tolerating a clear liquid diet. The patient had no complaints on discharge. Also, during this hospitalization, the patient was taken back to the operating room by Dr. Emanuel Herrera and diagnostic laparoscopy was performed. During this procedure, hematoma evacuation was performed and 300 mL of blood was extracted. The patient tolerated the surgery well. CONDITION ON DISCHARGE: Stable. As previously stated, he is tolerating a clinical liquid diet. He had no complaints on discharge. DISCHARGE MEDICATIONS: 1. Tylenol #3, 300/30, one pill every 4 hours p.r.n., pain #30 prescribed. No refills. 2. Zofran 4 mg 1 tablet every 6 hours p.r.n. nausea and vomiting, #20 prescribed. No refills. 3. Bupropion ER 150 mg daily. 4. Hydrochlorothiazide 25 mg daily. 5. Losartan 100 mg daily. 6. Verapamil 240 mg daily. The patient was told to stop the diclofenac until further notice. FOLLOWUP INSTRUCTIONS: The patient started follow up with Dr. Emanuel Hrerera in 1 week and with his primary care physician in 2 weeks. MD MATILDA White/MANE /[id number] cc: Emanuel Herrera MD MTDD
[2020-08-15] MEDS ORDERED: PANTOPRAZOLE SOD 40 MG TABEC PO SCH (07:30)
== END 2020-08-14 11:05 | disposition home or self-care (01) | DRG 619 ==
LOC: OR 05:22 → PACU V 08:41 → MED/SURG 09:59
PROVIDERS: ADMIT Internal Medicine; ATTEND Internal Medicine
PROC: 0DB64Z3 Excision of Stomach, Percutaneous Endoscopic Approach, Vertical (ICD-10-PCS; principal; 2020-08-10 07:30)
PROC: 0WCG4ZZ Extirpation of Matter from Peritoneal Cavity, Percutaneous Endoscopic Approach (ICD-10-PCS; 2020-08-12)
PROC: 30233N1 Transfusion of Nonautologous Red Blood Cells into Peripheral Vein, Percutaneous Approach (ICD-10-PCS; 2020-08-13)
DX: E66.01 Morbid (severe) obesity due to excess calories (principal); N17.0 Acute kidney failure with tubular necrosis; J18.9 Pneumonia, unspecified organism; E87.2 Acidosis; D62 Acute posthemorrhagic anemia; L76.32 Postprocedural hematoma of skin and subcutaneous tissue following other procedure; T81.44XA Sepsis following a procedure, initial encounter; R16.0 Hepatomegaly, not elsewhere classified; I13.10 Hypertensive heart and chronic kidney disease without heart failure, with stage 1 through stage 4 chronic kidney disease, or unspecified chronic kidney disease; Z68.41 Body mass index [BMI] 40.0-44.9, adult; F32.9 Major depressive disorder, single episode, unspecified; N18.2 Chronic kidney disease, stage 2 (mild); G47.33 Obstructive sleep apnea (adult) (pediatric); Z82.49 Family history of ischemic heart disease and other diseases of the circulatory system; Z83.3 Family history of diabetes mellitus; Z11.59 Encounter for screening for other viral diseases
CPT/HCPCS: 36415; 71045; 71260; 74177; 80048; 80053; 83605; 83735; 84100; 84484; 85025; 86850; 86900; 86920; 87040; 93005; J0330; J0690; J0692; J1100; J1650; J2001; J2175; J2250; J2270; J2370; J2405; J2550; J2710; J2765; J3010; J3370; J7030; J7040; P9016; Q9967

== ENCOUNTER 2020-08-17 15:04 | Emergency (ER) | payer BC, OTHER ==
[~2020-08-17] VITALS: Ht 172.7 cm; Wt 126.1 kg
[2020-08-17 16:04] LABS: BASOPHILS % 0.2 % (0.0-1.0); EOSINOPHILS # (AUTO) 0.2 (0.0-0.4); EOSINOPHILS % 1.4 % (0.0-6.0); HEMATOCRIT 30.8 % (38.2-49.6); HEMOGLOBIN 10.1 g/dL (14.0-18.0); LYMPHOCYTES # (AUTO) 2.3 (1.0-3.2); LYMPHOCYTES % 19.4 % (18.0-39.1); MEAN CORPUSCULAR HEMOGLOBIN 30.5 pg (28-32); MEAN CORPUSCULAR HGB CONC 32.8 g/dL (31-35); MEAN CORPUSCULAR VOLUME 93.1 fL (81-99); MONOCYTES % 8.4 % (4.4-11.3); NEUTROPHILS # (AUTO) 8.2 (2.1-6.9); NEUTROPHILS % 70.2 % (38.7-80.0); PLATELET COUNT 343 x10e3/uL (140-360); RED BLOOD COUNT 3.31 x10e6/uL (4.3-5.7)
[2020-08-17 16:22] LABS: ALANINE AMINOTRANSFERASE 92 IU/L (0-55); ALBUMIN 3.6 g/dL (3.5-5.0); ALBUMIN/GLOBULIN RATIO 1.1 (0.8-2.0); ALKALINE PHOSPHATASE 75 IU/L (40-150); ANION GAP 13.7 mmol/L (8-16); BLOOD UREA NITROGEN 16 mg/dL (7-26); BUN/CREATININE RATIO 14 (6-25); CALCIUM 9.2 mg/dL (8.4-10.2); CARBON DIOXIDE 26 mmol/L (22-29); CHLORIDE 102 mmol/L (98-107); CREATINE KINASE 91 IU/L (30-200); CREATININE, SERUM 1.13 mg/dL (0.72-1.25); EST GLOMERULAR FILTRATION RATE > 60 ML/MIN (60-); GLUCOSE 90 mg/dL (74-118); POTASSIUM 3.7 mmol/L (3.5-5.1); SODIUM 138 mmol/L (136-145)
--- OUTSIDE RECORDS SUMMARY | 2020-08-17 17:19 | XMS REPORT | Continuity of Care Document ---
Author Author [facility] t Organization [facility] Address [address] [place] [address] Phone Unavailable Care Team Providers Care Network Security Consultant Name Role Phone NONSTAFF PCP Unavailable Clara WHITFIELD Attphys Unavailable ANEESH BHATIA M.D., Dior MELENDREZ Attphys Unavailable ORClara COOK Admphys Unavailable ANEESH BHATIA M.D., Dior MELENDREZ Admphys Unavailable Payers Payer Name Policy Type Policy Number Effective Date [facility] Date [id number] 2019 00:00:00 [facility] Cdc Review Covid19 [id number] [facility] Problems Condition Name Condition Details Condition Category Status Onset Date Resolution Date Last Treatment Date Treating Clinician Comments Source Problem Condition Active [facility] Allergies, Adverse Reactions, Alerts This patient has no known allergies or adverse reactions. Family History Family Member Diagnosis Comments Start Date Stop Date Source 33 FATHER Family history of diabetes mellitus [facility] 33 FATHER Family history of coronary artery disease [facility] 33 FATHER Family history of hypertension [facility] 32 MOTHER Family history of hypertension [facility] Social History Social Habit Start Date Stop Date Quantity Comments Source Sex Assigned At 1970 00:00:00 1970 00:00:00 Male [facility] Medications Ordered Medication Name Filled Medication Name Start Date Stop Da te Current Medication? Ordering Clinician Indication Dosage Frequency Signature (SIG) Comments Components Source Bupropion Hcl (Wellbutrin Sr) 150 Mg TABLET.ER Bupropi on Hcl (Wellbutrin Sr) 150 Mg TABLET.ER Yes 150 Daily [facility] Hydralazine Hcl Hydralazine Hcl Yes 10 Twice A Day as needed for Elevated Blood Pressure [facility] Hydrochlorothiazide Hydrochlorothiazide Yes 25 Daily [facility] Losartan Potassium Losartan Potassium Yes 100 Da paddy [facility] Verapamil Hcl (Verapamil Er) 120 Mg CAP24H.PEL Verapam il Hcl (Verapamil Er) 120 Mg CAP24H.PEL Yes 240 Daily [facility] Diclofenac Potassium Diclofenac Potassium 2020-08-14 00:00:00 No Twice A Day [facility] Vital Signs Vital Name Observation Time Observation Value Comments Source Body Temperature 2020-08-14 07:56:00 98.1 [degF] [facility] BMI (Body Mass Index) 2020-08-10 11:24:00 44.1 kg/m2 [facility] Weight 2020-08-10 10:53:00 290 [lb_av] [facility] Procedures Procedure Date / Time Performed Performing Clinician [facility] e Computed tomography of chest with contrast 2020-08-12 00:00:00 [facility] Computed tomography of abdomen and pelvis with contrast 00:00:00 [facility] Plan of Care Planned Activity Planned Date Details Comments Source Instructions Obesity and Weight Control C [facility] Encounters Start Date/Time End Date/Time Encounter Type Admission Type [facility] Care Department Encounter ID Source 2020-08-10 08:41:00 2020-08-14 11:05:00 Discharged Inpatient 3 JOLENE WHITFIELD [facility] [id number] [facility] 2017-03-06 04:47:00 2017-03-06 04:47:00 [facility] [id number] [facility] Results Test Description Test Time Test Comments Results Result Comments Source Blood leukocytes automated count (number/volume) 2020-08-14 05:10:00 Test Item White Blood Count (test code = 6690-2) 9.51 4.8-10.8 [facility] erythrocytes automated count (number/volume)2020-08-14 05:10:00* Test Item Value Reference Range Interpretation Comments Red Blood Count (test code = 789-8) 2.74 4.3-5.7 [facility] hemoglobin measurement (moles/volume)2020-08-14 05:10:00* Test Item Value Reference Range Interpretation Comments Hemoglobin (test code = 96668-5) 8.6 14.0-18.0 [facility] blood hematocrit (volume fraction)2020-08-14 05:10:00* Test Item Value Reference Range Interpretation Comments Hematocrit (test code = 4544-3) 26.0 38.2-49.6 [facility] erythrocyte mean corpuscular gbjeuk6326-19-23 05:10:00* Test Item Value Reference Range Interpretation Comments Mean Corpuscular Volume (test code = 787-2) 94.9 81-99 [facility] erythrocyte mean corpuscular hemoglobin (mass per erythrocyte)2020-08-14 05:10:00* Test Item Value Reference Range Interpretation Comments Mean Corpuscular Hemoglobin (test code = 785-6) 31.4 28-32 [facility]landsAut[facility] erythrocyte mean corpuscular hemoglobin concentration measurement (mass/volume)2020-08-14 05:10:00* Test Item Value Reference Range Interpretation Comments Mean Corpuscular Hemoglobin Concent (test code = 786-4) 33.1 31-35 [facility]landsRDW PssYs-Lva7308-72-09 05:10:00* Test Item Value Reference Range Interpretation Comments Red Cell Distribution Width (test code = 37051-2) 13.6 11.7 -14.4 [facility] blood platelet count (count/volume)2020-08-14 05:10:00* Test Item Value Reference Range Interpretation Comments Platelet Count (test code = 777-3) 178 140-360 [facility] segmented neutrophil count as percentage of total coxhfiuzeq4342-08-11 05:10:00* Test Item Value Reference Range Interpretation Comments Neutrophils (%) (Auto) (test code = 02334-2) 59.8 38.7-80.0 [facility]lands[facility] blood lymphocyte count as percentage ot total dmyvszomso2764-60-48 05:10:00* Test Item Value Reference Range Interpretation Comments Lymphocytes (%) (Auto) (test code = 736-9) 29.1 18.0-39.1 [facility]landsAutom[facility] blood monocyte count as percentage of total vechxrjlzg1344-01-88 05:10:00* Test Item Value Reference Range Interpretation Comments Monocytes (%) (Auto) (test code = 5905-5) 7.5 4.4-11.3 [facility]lands[facility] blood eosinophil count as percentage of total demehxfwka0639-66-78 05:10:00* Test Item Value Reference Range Interpretation Comments Eosinophils (%) (Auto) (test code = 713-8) 2.9 0.0-6.0 [facility]landsAutom[facility] blood basophil count as percentage of total ookbhbrgyg1769-06-32 05:10:00* Test Item Value Reference Range Interpretation Comments Basophils (%) (Auto) (test code = 706-2) 0.3 0.0-1.0 [facility]landsFluoroscopic procedure less than one hour vdrcqksr5711-27-29 05:10:00* Test Item Value Reference Range Interpretation Comments IM GRANULOCYTES % (test code = IM GRANULOCYTES %) 0.4 0.0- 1.0 [facility]lands[facility] blood neutrophil count 2020-08-14 05:10:00* Test Item Value Reference Range Interpretation Comments Neutrophils # (Auto) (test code = 751-8) 5.7 2.1-6.9 [facility]landsBlood lymphocytes count (number/volume) 2020-08-14 05:10:00* Test Item Value Reference Range Interpretation Comments Lymphocytes # (Auto) (test code = 34387-8) 2.8 1.0-3.2 [facility]landsBlood monocytes automated count (number/volume)2020-08-14 05:10:00* Test Item Value Reference Range Interpretation Comments Monocytes # (Auto) (test code = 742-7) 0.7 0.2-0.8 [facility]landsAutom[facility] blood eosinophil count 2020-08-14 05:10:00* Test Item Value Reference Range Interpretation Comments Eosinophils # (Auto) (test code = 711-2) 0.3 0.0-0.4 [facility]landsAutomated blood basophil count (count/volume)2020-08-14 05:10:00* Test Item Value Reference Range Interpretation Comments Basophils # (Auto) (test code = 704-7) 0.0 0.0-0.1 [facility]landsFluoroscopic procedure less than one hour kbqirzxv2612-34-50 05:10:00* Test Item Value Reference Range Interpretation Comments Absolute Immature Granulocyte (auto (torsten t code = Absolute Immature Granulocyte (auto) 0.04 0-0.1 [facility] sodium measurement (moles/volume)2020-08-14 05:10:00* Test Item Value Reference Range Interpretation Comments Sodium Level (test code = 2951-2) 141 136-145 [facility] or plasma potassium measurement (moles/volume)2020-08-14 05:10:00* Test Item Value Reference Range Interpretation Comments Potassium Level (test code = 2823-3) 3.7 3.5-5.1 [facility] or plasma chloride measurement (moles/volume)2020-08-14 05:10:00* Test Item Value Reference Range Interpretation Comments Chloride Level (test code = 2075-0) 109 98-107 [facility] or plasma carbon dioxide, total measurement (moles/volume)2020-08-14 05:10:00* Test Item Value Reference Range Interpretation Comments Carbon Dioxide Level (test code = 2028-9) 23 22-29 [facility] or plasma anion meg4745-71-18 05:10:00* Test Item Value Reference Range Interpretation Comments Anion Gap (test code = 64424-5) 12.7 8-16 [facility] or plasma urea nitrogen measurement (mass/volume)2020-08-14 05:10:00* Test Item Value Reference Range Interpretation Comments Blood Urea Nitrogen (test code = 3094-0) 13 7-26 [facility] or plasma creatinine measurement (mass/volume)2020-08-14 05:10:00* Test Item Value Reference Range Interpretation Comments Creatinine (test code = 2160-0) 0.89 0.72-1.25 [facility] or plasma urea nitrogen/creatinine mass zqqpd9704-90-67 05:10:00* Test Item Value Reference Range Interpretation Comments BUN/Creatinine Ratio (test code = 3097-3) 15 6-25 [facility]landsEstimated glomerular filtration rate (GFR) ioypbavydmqui5578-32-05 05:10:00* Test Item Value Reference Range Interpretation Comments Estimat Glomerular Filtration Rate (test code = 581653822) > 60 >60 Ranges were taken from the National Kidney Disease Education Program and the [facility] literature.Reference ranges:60 or greater: Tabxsc71-02 ( for 3 consecutive months): Chronic kidney disease 15 or less: Kidney failureTexas Children's Hospital The WoodlandsGlucose kwrfvwadgam7149-92-61 05:10:00* Test Item Value Reference Range Interpretation Comments Glucose Level (test code = GNI7607) 82 74-118 [facility] or plasma calcium measurement (mass/volume)2020-08-14 05:10:00* Test Item Value Reference Range Interpretation Comments Calcium Level (test code = 27680-1) 7.8 8.4-10.2 [facility] or plasma total bilirubin measurement (mass/volume)2020-08-14 05:10:00* Test Item Value Reference Range Interpretation Comments Total Bilirubin (test code = 1975-2) 0.6 0.2-1.2 [facility]landsFluoroscopic procedure less than one hour rgzrncqt1228-42-03 05:10:00* Test Item Value Reference Range Interpretation Comments Aspartate Amino Transf (AST/SGOT) (test code = Aspartate Amino Transf (AST/SGOT)) 25 5-34 [facility] or plasma alanine aminotransferase measurement (enzymatic activity/volume)2020-08-14 05:10:00* Test Item Value Reference Range Interpretation Comments Alanine Aminotransferase (ALT/SGPT) (test code = 1742-6) 36 0-55 [facility] or plasma protein measurement (mass/volume)2020-08-14 05:10:00* Test Item Value Reference Range Interpretation Comments Total Protein (test code = 2885-2) 5.6 6.5-8.1 [facility] or plasma albumin measurement (mass/volume)2020-08-14 05:10:00* Test Item Value Reference Range Interpretation Comments Albumin (test code = 1751-7) 2.9 3.5-5.0 [facility]landsPlasma globulin measurement (mass/volume) 2020-08-14 05:10:00* Test Item Value Reference Range Interpretation Comments Globulin (test code = 14288-9) 2.7 2.3-3.5 [facility] or plasma albumin/globulin mass tkvta8470-15-97 05:10:00* Test Item Value Reference Range Interpretation Comments Albumin/Globulin Ratio (test code = 1759-0) 1.1 0.8-2.0 [facility] or plasma alkaline phosphatase measurement (enzymatic activity/volume)2020-08-14 05:10:00* Test Item Value Reference Range Interpretation Comments Alkaline Phosphatase (test code = 6768-6) 46 40-150 [facility]landsFluoroscopic procedure less than one hour mhokqjoj7135-40-29 11:45:00* Test Item Value Reference Range Interpretation Comments Lactic Acid Level (test code = Lactic Acid Level) 2.0 0.5- 2.0 [facility]landsCT ABDOMEN/PELVIS [id number] 11:20:00 [place] [address] Patient Name: RIOS MONTES MR #: [id number] : 1970 Age/Sex: 50/M Req #: [id number] Adm Physician: JOLENE WHITFIELD MD Ordered by: JOLENE WHITFIELD MD Rep ort #: [id number] Location: MED/SURG Room/B ed: 112-1 Procedure: [id number] CT/CT ABDOMEN/ PELVIS W Exam Date: 08/12/20 Exam Time: 1040 REPORT STATUS: Signed ADDEN DUM #1 ADDENDUM: At approximately 1150 colon hours on 08/12/2020 the imaging was reviewed with the performing surgeon, Dr. Martinez, in person. Given that the hyperdense fluid appears to originate from the inferior/anterio r aspect of the staple line and there is no pneumoperitoneum findings are more suggestive of staple line bleed as opposed to surgical leak. In addition the exophytic hypodense lesion is noted intraoperatively to be arising from t he liver, likely a hemangioma as it becomes isodense to the liver on delayed p hase imaging. Signed by: Leandra Ye MD on 08/12/2020 1:45 PM OR IGINAL REPORT CT of the abdomen and pelvis with contrast T ECHNIQUE: CT of the abdomen and pelvis WITH intravenous contrast and WITH oral contrast. Dose modulation, iterative reconstruction, and/or weight-based adju stment of the mA/kV was utilized to reduce the radiation dose to as low as roscoe sonably achievable. 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 oral contrast 20200812 1040 Y. COMPARISON: None. FINDINGS: LOWER THORAX: See separately reported CT of the chest. H EPATOBILIARY: No focal hepatic lesions. Gallbladder is unremarkable. No biliar y ductal dilatation. SPLEEN: No splenomegaly. Wedged shaped superior hypodensi ty probably relates to a small infarct. PANCREAS: No focal masses or ductal dilatation. ADRENALS: No adrenal nodules. KIDNEYS/URETERS: No hydronephro sis, stones, or masses. Delayed imaging damages symmetric excretion of contras t into nondilated ureters. PELVIC ORGANS/BLADDER: Unremarkable. PERITONEU M/RETROPERITONEUM: Heterogeneous free fluid is noted throughout the abdomen an d pelvis, extending from the upper abdomen including the perihepatic space int o the right paracolic gutter and pelvis. Dependently within the pelvis there a ppears to be contrast within the fluid (image 87). Fluid does not measure simp le and measures Alberto images ranging from 30-50 throughout. LYMPH NODES: No lymphadenopathy. VESSELS: Unremarkable. GI TRACT: Postsurgical changes fr om sleeve gastrectomy are noted. There is a hypodense exophytic lesion arising from the gastric fundus (image 17) measuring up to 3.6 x 3.0 cm. Of uncertain etiology, possibly postsurgical in nature. Oral contrast is identified throug hout the proximal colon and distal small bowel loops. Negative for bowel obstr uction.. BONES AND SOFT TISSUES: No acute osseous abnormality. Mild to mode rate multilevel degenerative changes of the spine are noted. No suspicious lyt ic or blastic lesion. Soft tissues are unremarkable.. IMPRESSION: 1. Hyperdense free fluid throughout the abdomen and pelvis extending from the upper midline abdomen into the perihepatic space to the right pericolic gutter and dependent portions of the pelvis. No surrounding contrast enhancement to suggest abscess formation. There is probable contrast poorly dependently at the base of the pelvis suggesting leak from recent sleeve gastrectomy. Hyperdense appearance is also concerning for a component of hemoperitoneum. 2. 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 Hypodense exophytic lesio n arising from the gastric fundus and superior portion of the suture line is o f uncertain etiology and could relate to postoperative change versus incisiona l hernia. The above findings were discussed with Dr. Whitfield on 08/12/2020 1 1:20 AM, who responded indicating that the communication was understood. The p erforming surgeon, Dr. Martinez, will be notified. Signed by: Leandra Ye MD on 08/12/2020 11:33 AM Dictated By: LEANDRA YE MD Electronically S igned By: LEANDRA YE MD on 08/12/20 1345 Transcribed By: ROLLY on 08/12/20 1133 COPY TO: JOLENE WHITFIELD MD CT CHEST [id number] 11:13:00 [place] [address] Patient Name: RIOS MONTES MR #: [id number] : 1970 Age/Sex: 50/M Req #: [id number] Adm Physician: JOLENE WHITFIELD MD Ordered by: JOLENE WHITFIELD MD Rep ort #: [id number] Location: MED/SURG Room/B ed: 112-1 Procedure: [id number] CT/CT CHEST W Exam Date: 08/12/20 Exam Time: 1020 REPORT STATUS: Signed EXAM: CT Chest WITH contra st- Pulmonary Embolism Protocol INDICATION: assess for pulmonary emboli [id number] 1020 Y COMPARISON: None TECHNIQUE: Chest was sc anned utilizing a multidetector helical scanner from the lung apex through the level of the diaphragm after administration of IV contrast. Thin section antwan nstructions were obtained with special concentration on the pulmonary arteries . Coronal and sagittal reformations were obtained. Pulmonary embolism protocol was performed. IV CONTRAST: 100 cc of Isovue 370 RADI ATION DOSE: Total DLP: 1410 mGy*cm Dose modulation, iterative r econstruction, and/or weight based adjustment of the mA/kV was utilized to red uce the radiation dose to as low as reasonably achievable. CO MPLICATIONS: None FINDINGS: LINES/ TUBES: None. PULMONARY ARTERIE S: Severely limited evaluation. The main pulmonary artery measures Hounsfield units of 188. Normally for diagnostic evaluation Hounsfield units should be ab ove 300. Negative for large central pulmonary embolism. Evaluation of the segm ental ranches and beyond is limited due to poor contrast opacification and res piratory motion artifact. Main pulmonary artery is of normal caliber. POLLO GS AND AIRWAYS: Basilar atelectasis is noted. Probable nodular atelectasis is noted at the left lung base measuring up to 1.4 cm. PLEURA: The pleural spa yoli are clear. HEART AND MEDIASTINUM: The thyroid gland is normal. No medi astinal, hilar or axillary lymphadenopathy. The heart is normal in size. Nega tive for right ventricular enlargement or bowing of the interventricular septu m.. There is no pericardial effusion. UPPER ABDOMEN: Better evaluated on separately reported CT of the abdomen and pelvis. BONES: Negative for acute osseous abnormality. Mild to moderate multilevel degenerative changes of the thoracic spine are noted. SOFT TISSUES: Unremarkable. IMPRESSION: 1. Limited evaluation for pulmonary embolus amount described above. Negat marah for large central or saddle embolus or secondary signs of right heart stra in. 2. Linear atelectasis at the right lung base and probable nodular atelecta sis versus pulmonary hamartoma/granuloma at the left lung base. Consider follo w-up noncontrast CT chest in 6 months to assess for resolution and assess for possible calcium/fat within the left basilar nodular opacity. Signed by: Leandra Ye MD on 08/12/2020 11:20 AM Dictated By: LEANDRA YE MD Elec tronically Signed By: LEANDRA YE MD on 08/12/20 1120 Transcribed By: ROLLY on 08/12/20 1120 COPY TO: JOLENE WHITFIELD MD Troponin I measurement by highly sensitive enzyme quwlvhsbplc0643-75-31 05:10:00* Test Item Value Reference Range Interpretation Comments Troponin I (test code = 81808-2) 0.057 0-0.300 [facility]landsBlood qgksype5129-03-85 18:11:00* Test Item Value Reference Range Interpretation Comments Blood Culture (test code = 02736895) NO GROWTH AFTER 48 HOURS [facility]landsCHES SINGLE (PORTABLE)2020-08-11 08:52:00 [place] [address] Patient Name: RIOS MONTES MR #: [id number] : 1970 Age/Sex: 50/M Req #: [id number] Adm Physician: JOLENE WHITFIELD MD Ordered by: JOLENE WHITFIELD MD Report #: [id number] Location: MED/SURG Room/Bed: [facility] Procedure: [id number] DX/CHEST SINGL E (PORTABLE) Exam Date: 08/11/20 Exam Time: 814 REPORT STATUS: Signed EXAMINATION: CHEST SINGLE (PORTABLE) INDICATION: Cough, hypotension COMPARISON : None FINDINGS: LINES/TUBES:None LUNGS:The lung volumes are low. Mild left basilar opacities. No pulmonary edema. PLEURA:No pleural effusion or pneumothorax. MEDIASTINUM:The cardiomediastinal silhouette appe ars normal in size and shape. BONES/SOFT TISSUES:No acute osseous injury. ABDOMEN:No free air under the diaphragm. IMPRESSION: Low lung vol umes. Mild left basilar opacities, most likely subsegmental atelectasis. Signed by: Margarita Eaton MD on 08/11/2020 8:53 AM Dictated By: MARGARITA EATON MD 2 Transcribed By: ALONA RODRIGUEZ on 08/11/20852 COPY TO: JOLENE WHITFIELD MD Phosphorus tsmwzhfyjby8167-14-82 05:40:00* Test Item Value Reference Range Interpretation Comments Phosphorus Level (test code = HEP9954) 2.9 2.3-4.7 [facility] magnesium measurement (mass/volume)2020-08-11 05:40:00* Test Item Value Reference Range Interpretation Comments Magnesium Level (test code = 68363-4) 2.1 1.3-2.1 [facility]Flu[facility]oscopic procedure less than one hour nqdsxdjm1113-36-31 11:09:00* Test Item Value Reference Range Interpretation Comments Coronavirus (PCR) (test code = Coronavirus (PCR)) NOT DETECTED NOTD ETECTED SARS-CoV-2 PCRHologic Aptima SARS-CoV-2 assay is a nucleic amplification test in tended for the qualitative detection of RNA from SARS-CoV-2 from nasopharyngeal ([employer]) specimens. It is used under Emergency Use Authorization (EUA) by FDA.A posi tive result is indicative of the presence of SARS-CoV-2 RNA. Clinical correlatio n with patient history and other diagnostic information is necessary to determin e patient infection status.A negative (Not Detected) result does not preclude SA RS-CoV-2 infection. Clinical Correlation with patient history and other diagnost ic information should be used in patient management decisions.Invalid: Unable to generate a valid result on this specimen. Please submit a new specimen for repr at testing oc clinically indicated.Tesing performed by:[facility] Laboratory Services3 [address] [facility] [id number] [id number], Michelet barnes MD, PhDTexas [facility]'s Hospital The WoodlandsXR SHOULDER 2+V, [id number]-[id number] 10:55:43Information: Status post right rotator cuff repairRight shoulder 2 viewsPostoperative changes of the soft tissues is noted. There is minimalosteophytic spurring and sclerosis of the articulating surfaces. Thereis anatomic alignment and position.IMPRESSION:1. Postoperative changes2. Mild degenerative changes.11127& [id number] 10:40:00XR CHEST 2V, PA & LATHISTORY: Preop respiratory assessment regarding rotator cuff repairCOMPARISO N: None availableTECHNIQUE: PA and lateral views providedFINDINGS: Heart size an d pulmonary vasculature within normal limits. Nofocal opacity or acute pleural a bnormality. Mild scoliotic curvature ofthe spine noted.IMPRESSION: No active car diopulmonary process.CT ABDOMEN/PELVIS [id number] 14:14:00[facility] [address] [place] [id number] IMAGING REPORTPatient Name: RIOS MONTESDate of Service: 03-27-3226Mzp: 46 Sex: M Order #: [id number] Room: ERSDOB: 1970 X-Ray Number: [id number] Record Number: [id number] Hospital Number: [id number] Nicholas morley: Lacey BLANK Physician: MÓNICA MORALES ABDOMEN AND PELVIS WITH CONTRAST:CLINICAL HISTORY: Abdominal pain with nausea vomiting for 2 days; no priorstudies hereTECHNIQUE: Examination is performed following intravenous ad ministration of100 mL of Isovue-300. 4 mm axial sections were obtained with mehdi nal andsagittal reconstructions. The GFR is [address] exam was performed usin g one or more of the following dosereduction techniques: Automated exposure cont rol, adjustment of the MA andor KV according to patient size or use of iterative reconstructiontechnique.FINDINGS: Images to the lung bases demonstrate a spicu lated mass measuring1.9 x 1.5 cm at the base of the left lung. There is a smalle r smoothlymarginated subcentimeter nodule demonstrated just anterior to the mass .Further evaluation with a CT scan the chest would be advisable to evaluatefor a dditional abnormalities in the chest.The enhanced liver, spleen, pancreas, adren als, kidneys ureters and bladderoral normal.The appendix is normal containing ai r.The unopacified bowel loops are unremarkable.There is no evidence of ascites o r masses.The aorta and its branches as well as the bony lumbar spine are normal forage.Impression:1. Spiculated mass seen in the left lower lung as described ab ove. Advisefurther evaluation with a CT scan the chest to evaluate for additiona labnormalities.2. The CT scan of the abdomen and pelvis is unremarkableElectroni ana Signed By: Bin Lopez M.D., 02/22/2017 2:12 PMLegally nazareth hospitalat ed by NETTIE Cox 2017-02-22 14:12:01
--- NOTE | 2020-08-17 18:58 | NUR ---
report given to Dave Hwang RN
[2020-08-17] MEDS ORDERED: LACTATED RINGER'S 1,000 ML INJ ONE (19:15)
[2020-08-17 20:34] VITALS: BP 124/78
--- NOTE | 2020-08-21 09:26 | Emergency Department Note ---
History of Present Illnes History of Present Illness Chief Complaint: General Medicine Complaints History of Present Illness This is a 50 year old male s/p sleve gastrectomy persents for post of op. Surgery with Dr. Martinez and had to have hematoma evacuation. Endorses epigastric pain. No other symptoms. Historian: Patient Arrival Mode: Car Can Technician Required: No Onset (how long ago): day(s) (1) Location: Epigastric Quality: sharp Radiation: Reports non-radiation Severity: moderate Onset quality: gradual Duration (how long): day(s) (1) Timing of current episode: constant Progression: unchanged Chronicity: recurrent Context: Reports recent surgery; Denies recent illness Relieving factors: none Exacerbating factors: none Associated symptoms: Reports denies other symptoms Treatments prior to arrival: none Past Medical/Family History Physician Review I have reviewed the patient's past medical and family history. Any updates have been documented here. Past Medical History Recent Fever: No Clinical Suspicion of Infectio: No New/Unexplained Change in Ment: No Past Medical History: Hypertension, Anxiety Past Surgical History: Bariatric Surgery Other Surgery: Knee reconstruction Right rotator cuff Social History Physically hurt or threatened: No Other Any Pre-Existing Lines (PICC,: No Review of Systems Review of Systems Constitutional: Reports no symptoms EENTM: Reports no symptoms Cardiovascular: Reports no symptoms Respiratory: Reports no symptoms Gastrointestinal: Reports no symptoms Genitourinary: Reports no symptoms Musculoskeletal: Reports no symptoms Integumentary: Reports no symptoms Neurological: Reports no symptoms Psychological: Reports no symptoms Endocrine: Reports no symptoms Hematological/Lymphatic: Reports no symptoms Physical Exam Related Data Allergies: Coded Allergies: No Known Allergies (Unverified , 06/08/20) Triage Vital Signs Vital Signs Date Time Temp Pulse Resp B/P (MAP) Pulse Ox O2 Delivery O2 Flow Rate FiO2 08/17/20 15:31 98.5 72 17 117/59 100 Room Air Vital signs reviewed: Yes Physical Exam CONSTITUTIONAL Constitutional: Present well-developed, Present well-nourished HENT HENT: Present normocephalic, Present atraumatic, Present oropharynx clear/moist, Present nose normal HENT L/R: Present left ext ear normal, Present right ext ear normal EYES Eyes: Reports PERRL, Reports conjunctivae normal NECK Neck: Present ROM normal PULMONARY Pulmonary: Present effort normal, Present breath sounds normal CARDIOVASCULAR Cardiovascular: Present regular rhythm, Present heart sounds normal, Present capillary refill normal, Present normal rate GASTROINTESTINAL Abdominal: Present soft, Present nontender, Present bowel sounds normal GENITOURINARY Genitourinary: Present exam deferred SKIN Skin: Present warm, Present dry MUSCULOSKELETAL Musculoskeletal: Present ROM normal NEUROLOGICAL Neurological: Present alert, Present oriented x 3, Present no gross motor or sensory deficits PSYCHOLOGICAL Psychological: Present mood/affect normal, Present judgement normal Results Laboratory Result Diagram: 08/17/20 1542 08/17/20 1542 Lab results reviewed: Yes Assessment & Plan Medical Decision Making MDM 50 y.o M s/p sleeve gastrectomy and subsequent hematoma block. Labs benign. recent Ct scan benign. Pain present since discharge. Discussed with Dr. Martinez and will f/u in clinic. Doubt emergent process. Appropriate for DC. Assessment & Plan Final Impression: (1) Post-op pain Depart Disposition: HOME, SELF-CARE Last Vital Signs Date Time Temp Pulse Resp B/P (MAP) Pulse Ox O2 Delivery O2 Flow Rate FiO2 08/17/20 20:34 69 17 100 08/17/20 20:31 98.4 124/78 Room Air Home Meds Reported Medications Hydralazine Hcl (HYDRALAZINE HCL) 10 Mg Tablet, 10 MG PO BID PRN for ELEVATED BLOOD PRESSURE, #30 TAB 06/08/20 Bupropion Hcl (WELLBUTRIN SR) 150 Mg Tablet.er, 150 MG PO DAILY 06/08/20 Verapamil Hcl (VERAPAMIL ER) 120 Mg Cap24h.pel, 240 MG PO DAILY 06/08/20 Hydrochlorothiazide (HYDROCHLOROTHIAZIDE) 25 Mg Tablet, 25 MG PO DAILY, #30 TAB 06/08/20 Losartan Potassium (LOSARTAN POTASSIUM) 100 Mg Tablet, 100 MG PO DAILY, TAB 06/08/20 Discontinued Reported Medications Diclofenac Potassium (DICLOFENAC POTASSIUM) 50 Mg Tablet, PO BID 06/08/20 ASIM OCAMPO MD Aug 21, 2020 09:26
== END 2020-08-17 20:43 | disposition home or self-care (01) ==
LOC: ER 17:17
DX: G89.18 Other acute postprocedural pain (principal); R10.13 Epigastric pain; Z98.84 Bariatric surgery status; I10 Essential (primary) hypertension; F41.9 Anxiety disorder, unspecified
CPT/HCPCS: 36415; 80053; 82550; 82553; 83690; 84484; 85025; 93005; 99283; J7121